=== PATIENT | male | born 1990 | race Caucasian/White ===

== ENCOUNTER 2024-10-18 09:15 | Emergency (ER) | payer OTHER ==
[~2024-10-18] VITALS: Ht 182.9 cm; Wt 88.6 kg
[2024-10-18 09:20] VITALS: BP 152/85; PULSE 129; TEMP 98.6; O2SAT 97
--- NOTE | 2024-10-18 09:51 | RADIOLOGY REPORT ---
EXAM: DI FOOT, COMPLETE (3VW MIN) HISTORY: FOOT PAIN COMPARISON: None TECHNIQUE: Three views of the left foot were performed. FINDINGS: No acute fracture or dislocation are identified about the left foot. 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 IMPRESSION: No acute fracture of the left foot.
--- NOTE | 2024-10-18 09:54 | Physician Documentation ---
History of Present Illness ~ Chief Complaint: Foot pain Stated Complaint: R FOOT PAIN Time Seen by MD: 09:30 HPI This 34-year-old male presents with pain to his right heel after jumping approximately 5 ft onto a hard surface striking his heel yesterday, patient reports it was able to walk and bear weight on it yesterday though the pain has worsened today and it is quite painful to walk on the foot. Medication Reconciliation Allergies: Coded Allergies: No Known Allergies (Unverified , 10/18/24) Past Medical History Past Medical History: No Pertinent History Review of Systems ROS Right foot pain as stated above in the HPI, otherwise all systems are reviewed and negative. Physical Exam Vital Signs: Temperature: 98.6, Source: Temporal, Heart Rate: 129, Respiratory Rate: 18, BP: 152/85, Pulse Oximetry: 97, Weight: 88.640 Oxygen Flow Rate: 0 Physical Exam VITALS: Reviewed and as above. GENERAL: Alert, nontoxic appearing, no apparent distress. RESPIRATORY: No increased work of breathing, no respiratory distress, speaking in full clear sentences EXTREMITIES: Right foot; No deformity, no swelling, no ecchymosis, no erythema, strong pedal pulse, range of motion intact, minimally tender to palpation to plantar aspect of right heel, otherwise foot nontender to palpation Progress Results/Orders Results/Orders Orders - KENDAL VICTORIA Ortho Orders (10/18/24 ) Completed Orders - KENDAL VICTORIA Ketorolac Trometh 15mg/Ml Vial (Toradol (10/18/24 09:50) Vital Signs 10/18/24 10/18/24 09:20 10:10 Temp 98.6 Pulse 129 Resp 18 16 B/P (MAP) 152/85 Pulse Ox 97 O2 Flow Rate 0 EKG/XRAY/CT/US/VASC/MRI Bone/Soft Tissue X-Ray (Ext.) : Additional Comment EXAM: DI FOOT, COMPLETE (3VW MIN) HISTORY: FOOT PAIN COMPARISON: None TECHNIQUE: Three views of the left foot were performed. FINDINGS: No acute fracture or dislocation are identified about the left foot. 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 IMPRESSION: No acute fracture of the left foot. Electronically Signed by:MINA HORTON MD Date & Time: 10/18/2449 Dictated by: MINA HORTON MD Dictation date and time: 10/18/24929 I have reviewed and agree with the radiology report. I have reviewed and interpreted the imaging as: No fracture or dislocation Medical Decision Making Findings This 34-year-old male presented with one day of right foot pain after jumping from a ledge onto a hard surface, patient reported no other injuries and is able to walk on the affected foot though reports pain when bearing weight, physical exam was benign with no ecchymosis, erythema, deformity, or swelling and the foot was neurovascularly intact. X-ray did not show evidence of fracture or dislocation. I suspect soft tissue injury to the plantar aspect of the foot, patient was medicated for pain and placed on crutches, plan is to use rest, ice, compression, and elevation strategy for treatment. Patient is otherwise well with a benign physical exam and appropriate for outpatient follow up. I discussed the plan with the patient who agrees with plan, patient provided home care and discharge instructions patient verbalized understanding. Foot Diff Dx:Considerations: Include: Abrasion, Arthritis, Contusion, Dislocat ion, DJD, Fracture-metatarsal, Fracture-phalynx, Fracture-tarsal, Hematoma, Laceration, Neurovascular injury, Sprain, Septic Departure Disposition: 01 HOME / SELF CARE / HOMELESS Impression: Primary Impression: Foot pain Qualified Codes: M79.671 - Pain in right foot Condition: Improved Discharge Instructions: RICE Therapy for Routine Care of Injuries Additional Instructions: Please use the provided crutches for comfort, please see the attached home care instructions for rest, ice, compression, and elevation for treatment of your injury. You may use ibuprofen and or Tylenol as directed by the [id number] packaging for pain. Please follow up with your primary care provider in the next few days for re-evaluation. Please return to the emergency department for any new or worsening concerning symptoms. Do not take ibuprofen, naproxen, aspirin, or other NSAIDs for the next 12 hours and received a Toradol injection in the emergency department. Referrals: NO PRIMARY CARE PROVIDER (PCP) Education Educated: Patient Educated regarding: diagnosis, treatment, prognosis, need for follow up Signature Scribe Signature: No scribe Attestation: The note accurately reflects work and decisions made by me.ILDEFONSO Diego 10/18/24 20:27 KENDAL VICTORIA Oct 18, 2024 09:54
[2024-10-18 10:10] VITALS: RESP 16
[2024-10-18] MEDS: ketorolac trometh 15mg/ml vial 15 MG/ML ML IM ONE (10:10)
== END 2024-10-18 10:22 | disposition home or self-care (01) ==
LOC: ER 09:16
DX: M79.671 Pain in right foot (principal)
CPT/HCPCS: 73630; 96372; 99283; J1885